=== PATIENT | female | born 1945 | race Caucasian/White ===

== ENCOUNTER 2024-04-06 12:25 | Inpatient (IN) | payer MEDICARE, OTHER, SELFPAY ==
[2024-04-06] VITALS (16 sets, daily range): BP systolic 104–179; BP diastolic 76–108; BMI 21.5
--- NOTE | 2024-04-06 09:17 | ED.GENMED ---
History of Present Illness
General
Chief Complaint: Abdominal Symptoms
Source: patient and family
Time Seen by Provider: 04/06/24 09:03
History of Present Illness
History of Present Illness:
Patient is a 78-year-old woman with history of A-fib on Coumadin, history of achalasia requiring dilatations, followed by GI here presenting to the emergency department with food bolus impaction. Patient states that 2 days ago she noticed that she
might of had a food bolus. She tried to drink water and tried to alleviate the bolus at home. However this morning she was even having difficulty with water so she presented to the emergency department. She denies any difficulty breathing. She
is able to tolerate her own secretions. No changes to her voice. She has had multiple boluses in the past requiring endoscopy. She did have a dilation in August at [facility]. She does state that she has not really had much to eat in the past 2
days. No nausea or vomiting. No abdominal pain. She feels as if it is stuck at the bottom of her throat.
Past History
Past History
ED Past Medical History: Arrthythmia (Atrial fibrillation), HTN, Hypercholesterolemia and Other (Achalasia)
ED Past Surgical History: Other (Esophageal myomectomy)
Social History
Tobacco: Non-smoker
Alcohol: None
Drug: None
Living: with family
Phy Exam
Physical Exam
Physical Exam:
GENERAL: in no acute distress
HEENT: normocephalic, extraocular movements intact, moist oral mucosa, tolerating secretions
NECK: normal inspection
RESPIRATORY: no respiratory distress, clear to auscultation bilaterally
CARDIOVASCULAR: regular rate and rhythm
ABDOMEN/: soft, non-distended, non-tender to palpation, no rebound or guarding
EXTREMITIES: non-tender, no edema/swelling
NEUROLOGIC: awake and alert, moves all extremities
SKIN: warm
Course
Orders/Labs/Results
Orders:
Orders
04/06/24 09:13
Glucagon [GlucaGen] 1 mg IV NOW STA
Ondansetron Injectable [Zofran] 4 mg IV NOW STA
04/06/24 09:15
Glucagon [GlucaGen] 1 mg .ROUTE .STK-MED ONE
04/06/24 09:41
Basic Metabolic Panel Urgent
Complete Blood Count/With Diff Urgent
Prothrombin Time Urgent
04/06/24 10:16
0.9% Sodium Chloride 1000 ml [Nss] 1,000 ml IV BOLUS
04/06/24 10:45
Glycopyrrolate [Robinul] 0.2 mg .ROUTE .STK-MED ONE
Lidocaine 2% Mpf [Xylocaine Mpf 2%] 100 mg .ROUTE .STK-MED ONE
Phenylephrine HCl/0.9% NaCl [Jason-Synephrine] 1,000 mcg .ROUTE .STK-MED ONE
Propofol [Diprivan] 20 ml .ROUTE .STK-MED
Rocuronium Auberry [Rocuronium] 50 mg .ROUTE .STK-MED ONE
Succinylcholine Chloride [Succinylcholine] 200 mg .ROUTE .STK-MED ONE
Abnormal Lab Results
04/06/24
09:41
Absolute Neuts (auto) 6.9 H 10^3/uL
(1.4-6.5)
Absolute Lymphs (auto) 0.9 L 10^3/uL
(1.2-3.4)
Absolute Monos (auto) 0.8 H 10^3/uL
(0.1-0.6)
Neutrophils % 79.9 H %
(42.2-75.2)
Lymphocytes % 10.7 L %
(20.5-51.1)
PT 24.2 H Sec
(11.4-14.6)
Sodium 133 L mmol/L
(135-145)
Chloride 95 L mmol/L
(98-107)
BUN 23 H mg/dl
(7-17)
Creatinine 1.3 H mg/dL
(0.6-1.0)
04/06/24 09:41
04/06/24 09:41
Vital Signs
Initial and Last Documented VS:
Initial Vital Signs
Temp Pulse Resp BP Pulse Ox
97.8 F 96 18 121/82 97
04/06/24 08:54 04/06/24 08:54 04/06/24 08:54 04/06/24 08:54 04/06/24 08:54
Last Documented Vital Signs
Temp Pulse Resp BP Pulse Ox
98 F 70 18 121/78 98
04/06/24 10:00 04/06/24 10:00 04/06/24 10:00 04/06/24 10:00 04/06/24 10:00
MDM/Problems Addressed
Differential Diagnosis Includes:
Patient is a 78-year-old with history of achalasia, dilations in the past and history of food boluses as well as A-fib on Coumadin presenting to the emergency department with a food bolus impaction that started 2 days ago. Vitals here are
unremarkable and exam does show woman who is tolerating her secretions and protecting her own airway. Concern for food bolus impaction versus esophagitis. Given the limited p.o. for the past 2 days concern for GERARD and metabolic derangement. Will
check basic blood work as well as an INR level. Will give glucagon and Zofran. I did discuss with GI who will take patient to the endoscopy suite.
Chronic conditions affecting care: Other (achalasia)
*Critical Care Note
Total Time (30-74mins, 75-104mins- exclusive of procedures): Not Applicable
Update Note
Update Note:
Blood work notable for slightly elevated creatinine. Will give fluids. Likely from decreased p.o. Patient is aware to follow-up with PCP to have repeat blood work next week. Unfortunately glucagon did not work. GI will take patient up to the
approximately 11 AM. Patient continues to protect her airway and is tolerating her secretions
ED Attending Note
-
Portions of this chart may have been created with voice recognition software.� Occasional wrong word or��sound alike� substitutions may have occurred due to the inherent limitations of voice recognition software.
Discharge Plan
Departure
Patient Disposition: GI LAB
Date of Disposition: 04/06/24
Time of Disposition: 10:50
Admit to doctor: janusz
Presentation/result/management discussed w/ accepting MD/DO: GI
Discharge Problem:
Esophageal obstruction due to food impaction
Prescriptions:
No Action
atorvastatin 10 MG tablet
10 mg PO QPM
cholecalciferol (vitamin D3) 2,000 UNIT tablet
2,000 unit PO DAILY
pantoprazole 40 MG tablet,delayed release (DR/EC)
40 mg PO BID
metoprolol tartrate 50 mg tablet
50 mg PO BID
amiodarone 200 mg Tablet
200 mg PO DAILY
warfarin 2 mg Tablet
2 mg PO SUTUTHSA
ondansetron 4 mg Tablet,Disintegrating
4 mg PO Q6H PRN (Reason: nausea)
ebroqhzewp-woqonmxkuh-oit-cod [Fioricet with Codeine] [id number] mg Capsule
1 cap PO TID PRN (Reason: headache)
Referrals:
Sunshine Miranda DO [Family Provider] -
Interventions
Interventions:
*Risk Screen - Suicide Last Done: 04/06/24 08:54
*General Assessment Last Done: 04/06/24 08:54
*Neglect/Abuse Screening Last Done: 04/06/24 08:54
ED- Fall Risk Assessment Last Done: 04/06/24 09:27
*ED COVID-19 Vaccine History Last Done: 04/06/24 08:54
BL-Qkgfxl-Nlbcvnfchm Assessment Last Done: 04/06/24 09:27
Discharge Date and Time
Print Language: MALAY
--- NOTE | 2024-04-06 09:35 | CON.GI ---
Consultation
-
Date/Time Consultation Requested: 04/06/2024, 9:15am
Date/Time Consultation Performed: 04/06/2024, 9:45am
Requesting Provider: Dr. Daily
Performing Provider: Dr. Rae
Reason for Consultation: food impaction
Medical History
Chief Complaint / HPI
Chief Complaint: food impaction
History of Present Illness:
Pt is a 78yo presents with afib on coumadin, HTN, MVP and longstanding Achalasia since age 9 and has been refractory to Botox and dilation s/p POEM Aug [address] Garcia.
Had appt in our office with Alisa OLIVER after having cheese and crackers unable to tolerate any liquids. Did not have any further food. Able to tolerate secretions.
Here with .
Multiple EGDs for food impaction.
Most recent 05/2023.
Past Medical History
Past Medical History: Other (A fib, Hypertension, Mitral valve prolapse, Achalasia)
Past Surgical History: Other (Pacemaker, POEM, cataract, ablation, knee)
Social History
Tobacco: Non-Smoker
Alcohol: None
Drug: None
Family History
Family History: Reviewed & Not Pertinent
Allergies / Home Medications
Allergy/AdvReac Type Severity Reaction Status Date / Time
No Known Allergies Allergy Verified 04/06/24 08:54
�Medication �Instructions �Recorded
atorvastatin 10 mg tablet 10 mg PO QPM 12/29/21
cholecalciferol (vitamin D3) 50 2,000 unit PO DAILY 12/29/21
mcg (2,000 unit) tablet
pantoprazole 40 mg tablet,delayed 40 mg PO BID 12/29/21
release
metoprolol tartrate 50 mg tablet 50 mg PO BID 06/23/23
amiodarone 200 mg tablet 200 mg PO DAILY 04/06/24
butalbital 50 mg-acetaminophen 300 1 cap PO TID PRN headache 04/06/24
mg-caffeine 40 mg-codeine 30 mg
cap (Fioricet with Codeine)
ondansetron 4 mg disintegrating 4 mg PO Q6H PRN nausea 04/06/24
tablet
warfarin 2 mg tablet 2 mg PO SUTUTHSA 04/06/24
Review of Systems
-
All other systems: A 12 pt ROS was Negative except as stated above in HPI
Vital Signs
Temp Pulse Resp BP Pulse Ox
97.8 F 96 18 121/82 97
04/06/24 08:54 04/06/24 08:54 04/06/24 08:54 04/06/24 08:54 04/06/24 08:54
Physical Exam
Exam
General: Well Developed
HEENT: Normocephalic
Respiratory: Clear
Cardiac: S1/S2
GI: Non Tender and Non Distended
Musculoskeletal: No Clubbing
Skin: Warm
Neuro: AO x 3
Results
Diagnostic Image Results:
Prior GI Procedures:
EGD:
Colonoscopy:
Assessment / Plan
-
78 yo F pmh A fib on coumadin, achalasia s/p botox, dilation, POEM here with food impaction.
Given glucagon no improvement.
Plan urgent EGD this AM. Risks including not limited to bleeding, infection, perforation reviewed with pt.
D/w ER.
-
-
Thank you for consultation and allowing me to participate in the patient's care. Please call the education finance [facility] GI physician during the after hours with any questions or concerns.
[2024-04-06] MEDS: GlucaGen 1 MG IV (09:40)
[2024-04-06] MEDS: ZOFRAN 4 MG IV (09:40)
[2024-04-06 10:04] LABS: % Basophils 0.2 % (0-2); % Eosinophils 0.2 % (0-6); % Immature Granulocytes 0.2 % (0-0.5); % Lymphocytes 10.7 % (20.5-51.1); % Monocytes 8.8 % (1.7-9.3); % Neutrophils 79.9 % (42.2-75.2); Absolute Lymphocytes 0.9 10^3/uL (1.2-3.4); Absolute Monocytes 0.8 10^3/uL (0.1-0.6); Absolute Neutrophils 6.9 10^3/uL (1.4-6.5); Hematocrit 39.4 % (37.0-47.0); Hemoglobin 13.7 g/dL (12.0-16.0); Mean Corp Hgb Conc. 34.8 g/dL (33.0-37.0); Mean Corpuscular Hgb 30.2 pg (27.0-31.0); Mean Corpuscular Volume 86.8 fL (81.0-99.0); Mean Platelet Volume 10.3 fL (7.4-10.4); Nucleated Red Blood Cells % 0 %; Platelet Count 194 10^3/uL (130-400); Red Blood Cell Count 4.54 10^6/uL (4.20-5.40); Red Cell Dist. Width 14.2 % (11.5-14.5); White Blood Cell Count 8.6 10^3/uL (4.8-10.8)
[2024-04-06 10:08] LABS: Blood Urea Nitrogen 23 mg/dl (7-17); Calcium 9.8 mg/dl (8.4-10.2); Carbon Dioxide 27 mmol/L (22-30); Chloride 95 mmol/L (98-107); Estimated Creatinine Clearance 26 ml/min; Glucose 97 mg/dl (70-99); Potassium 3.9 mmol/L (3.5-5.1); Sodium 133 mmol/L (135-145); eGFR 42.35
[2024-04-06 10:15] LABS: INR 2.18; PT 24.2 Sec (11.4-14.6)
[2024-04-06] MEDS: NSS 1000 IV (10:30)
--- NOTE | 2024-04-06 13:07 | HPS.HSE ---
Family Physician
-
Family Physician: Sunshine Miranda
Chief Complaint
-
Food impaction
History of Present Illness
78-year-old female with a past medical history of end-stage achalasia, paroxysmal atrial fibrillation on Coumadin, and hyperlipidemia presents with not being able to eat since . Patient has a history of end-stage achalasia since 9 years
old, refractory to Botox and dilation. She had POEM Aug [address] Garcia. Reports last eating , she had cheese and crackers. Since then, she has not been able to tolerate any liquids. No fever, no chest pain, no shortness of
breath. No abdominal pain. No nausea, no vomiting.
Medical History
Past Medical History
Past Medical History: Reports Other
Additional Past Medical History:
Atrial fibrillation on warfarin
Hypertension
Mitral valve prolapse
End-stage achalasia
Hyperlipidemia
Gastroesophageal reflux disease
Headache
Vitamin D deficiency
Past Surgical History: Reports Other
Additional Past Surgical History:
Pacemaker, POEM, cataract, ablation, knee surgery
Social History
Tobacco: Non-smoker
Alcohol: None
Drug: None
Personal:
Living: With Family
Family History
Family History: Not pertinent
Allergies / Home Medications
Allergies reflects when Allergies were last updated in [employer].
Home Medications with original date entered in [employer]
Allergy/Medication List:
Allergies
Allergy/AdvReac Type Severity Reaction Status Date / Time
No Known Allergies Allergy Verified 04/06/24 08:54
Home Medications Table - record
�Medication �Instructions �Recorded �Confirmed
atorvastatin 10 mg tablet 10 mg PO QPM 12/29/21 04/06/24
cholecalciferol (vitamin D3) 50 2,000 unit PO DAILY 12/29/21 04/06/24
mcg (2,000 unit) tablet
pantoprazole 40 mg tablet,delayed 40 mg PO BID 12/29/21 04/06/24
release
metoprolol tartrate 50 mg tablet 50 mg PO BID 06/23/23 04/06/24
amiodarone 200 mg tablet 200 mg PO DAILY 04/06/24 04/06/24
butalbital 50 mg-acetaminophen 300 1 cap PO TID PRN headache 04/06/24 04/06/24
mg-caffeine 40 mg-codeine 30 mg
cap (Fioricet with Codeine)
ondansetron 4 mg disintegrating 4 mg PO Q6H PRN nausea 04/06/24 04/06/24
tablet
warfarin 2 mg tablet 2 mg PO SUTUTHSA 04/06/24 04/06/24
Review of Systems
-
A 12 point ROS was completed and negative except as noted: Yes
Physical Exam
Vital Signs
Vital Signs
Temp Pulse Resp BP Pulse Ox
98 F 76 21 152/80 98
04/06/24 13:00 04/06/24 13:01 04/06/24 13:01 04/06/24 13:01 04/06/24 13:01
Physical Exam
General: No Apparent Distress
HEENT: NormoCephalic, Anicteric, Moist mucous membranes and Atraumatic
Respiratory: Clear
Cardiac: S1/S2 and Regular Rhythm
GI: Soft, Non Tender, Non Distended and Normal Bowel Sounds
Musculoskeletal: No Clubbing, No Cyanosis and No Edema
Neuro: Awake and Alert
Psych: Calm
Laboratory Results
-
04/06/24 09:41
04/06/24 09:41
Laboratory Results
PT 24.2 Sec (11.4-14.6) H 04/06/24 09:41
INR 2.18 04/06/24 09:41
Impression/Plan
-
HPI: 78-year-old female with a past medical history of end-stage achalasia, paroxysmal atrial fibrillation on Coumadin, and hyperlipidemia presents with not being able to eat since . Patient has a history of end-stage achalasia since 9
years old, refractory to Botox and dilation. She had POEM Aug [address] Garcia. Reports last eating , she had cheese and crackers. Since then, she has not been able to tolerate any liquids. No fever, no chest pain, no shortness
of breath. No abdominal pain. No nausea, no vomiting.
#Food impaction
#End-stage achalasia
Appreciate GI input, status post EGD 04/06 showing food in the middle and lower third of the esophagus, unable to be removed
N.p.o., keep head of bed up, aspiration precautions, IV fluids
Transfer to [facility] when bed available
#Paroxysmal atrial fibrillation
Hold amiodarone, warfarin, metoprolol
Give therapeutic Lovenox, IV metoprolol
#Gastroesophageal reflux disease
PPI IV twice daily
#Hyperlipidemia
Hold statin
DVT prophylaxis�already on therapeutic Lovenox
Full code
[2024-04-06] MEDS: LOPRESSOR 5 MG IV ×3 (14:41→23:16)
--- NOTE | 2024-04-06 15:16 | W.PN.UPDATE ---
Update Note
Progress Note Update
I s/w [facility] transfer
They accepted the patient
I updated hospitalist, rn,
extensive time coordination of care
--- NOTE | 2024-04-06 15:30 | W.DCSUMMARY ---
Discharge Summary
Discharge Data
Date of Admission: 04/06/24
Date of Discharge: 04/06/24
-
Pending Results: No
Hospital Course
Discharge diagnosis:
Food impaction
End-stage achalasia
Paroxysmal atrial fibrillation on warfarin
Gastroesophageal reflux disease
Hyperlipidemia
Consults: GI
Procedures:
EGD 04/06/24 showing food in the middle and lower third of the esophagus, unable to be cleared
Hospital course:
78-year-old female with a past medical history of end-stage achalasia, paroxysmal atrial fibrillation on warfarin, and hyperlipidemia who was admitted for a food impaction. Patient has a history of end-stage achalasia since 9 years old, refractory
to Botox and dilation. She had POEM Aug [address] Garcia. Reports last eating 2 days ago, she had cheese and crackers. Since then, she has not been able to tolerate any food or liquids.
Patient was seen in conjunction with GI, and had an EGD showing food in the middle and lower third of the esophagus. The food was unable to be cleared. GI recommends transfer to [facility] for further management. Patient has been accepted by
[facility], and transferred to [facility] in stable condition.
Disposition: Transferred to [facility]
Discharge Plan
-
Patient Disposition: Acute Care Hospital
Condition: Fair
Discharge Orders:
Discharge Patient (As Directed); Ordered 04/06/24
Ordered By: Seamus Catalan
Discharge Date and Time
Discharge Date/Time: 04/07/24 03:40
Print Language: [place]THER[place] IRISH
--- NOTE | 2024-04-06 15:51 | CM ---
Reviewed the chart notes and spoke with the patient at the bedside. The patient resides with her spouse in a one story home with one step to enter. The patient reports no DME/VN/SNF in the past. The patient confirmed her pharmacy of choice is the
[facility]. Patient is anticipating be transferred to [place]. CM continues to be available to patient/family and is monitoring medical plan for needs at discharge.
Plan: Transfer to [place] when bed available.
[2024-04-06] MEDS: NSS (PRESERVATIVE FREE) 10 ML IV (19:34)
[2024-04-06] MEDS: PROTONIX IV 40 MG IV (19:35)
[2024-04-07 03:00] VITALS: BP 140/83
--- NOTE | 2024-04-07 03:38 | TRANSFER ---
Ambulance was here to pick pt up at 0320. Discharge instructions given to patient. Report given to PAIGE Yoon at [facility]. JUDY @ dc.
== END 2024-04-07 03:40 | disposition short-term general hospital (02) | DRG 395 ==
LOC: 2 SOUTH 12:25
PROVIDERS: ADMITTING PHYSICIAN Student in an Organized Health Care Education/Training Program; ATTENDING PHYSICIAN Family Medicine; CONSULT PHYSICIAN Internal Medicine Gastroenterology; FAMILY PHYSICIAN Family Medicine
PROC: 0DB68ZZ Excision of Stomach, Via Natural or Artificial Opening Endoscopic (ICD-10-PCS; 2024-04-06)
DX: T18.128A Food in esophagus causing other injury, initial encounter (principal); K31.7 Polyp of stomach and duodenum; I48.0 Paroxysmal atrial fibrillation; K22.2 Esophageal obstruction; K22.0 Achalasia of cardia; E78.00 Pure hypercholesterolemia, unspecified; E55.9 Vitamin D deficiency, unspecified; I10 Essential (primary) hypertension; I34.1 Nonrheumatic mitral (valve) prolapse; K21.9 Gastro-esophageal reflux disease without esophagitis; Z79.01 Long term (current) use of anticoagulants; W44.F3XA Food entering into or through a natural orifice, initial encounter
CPT/HCPCS: 88305; 80048; 85025; 85610; 88342; 96361; 96374; 96375; 99285; J1610